=== PATIENT | female | born 1925 | race Caucasian/White ===

== ENCOUNTER 2016-08-21 18:12 | Emergency (ER) | payer MEDICARE, MEDICAID ==
[~2016-08-21] VITALS: Ht 170.2 cm; Wt 68.9 kg
[~2016-08-21 18:12] MED LIST: AMOXICILLIN250 MG PO; AMOXICILLIN500 M2 PO; BACTRIM DS 8001 TA1 PO; DAILY VITE1 TA2 PO; DIAZEPAM2 M1 PO; DIAZEPAM2 MG PO; FERROUS SULFAT325 M2 PO; GAS-X80 MG PO; KEFLEX 500MG.500 MG PO; LORTAB 5/500 501 TAB PO; MACROBID 100MG100 MG PO; MACRODANTIN100 MG PO; MECLIZINE12.5 MG PO; MEDROL 4MG. DOSE4 MG PO; MEGACE PO; MEGESTROL ACETA40 MG PO; MOTRIN IB200 MG PO; MOTRIN100 MG/5 M PO; NYSTATIN 1100000 UNI PO; TUMS500 MG PO; ZITHROMAX Z-PA250 M1 PO; [UNRECOGNIZED DRUG - OTHER] PO
[2016-08-21 18:25] LABS: HEMOGLOBIN 15.1 g/dL (12.2-16.2); LYMPH % 15.6 % (10-50.0)
--- NOTE | 2016-08-21 18:57 | Emergency Room Report ---
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 N Clinical Suspician of Infection? N Mental Status: 1 - Regular (Normal Baseline) Sepsis Risk:Low Sepsis Risk Have you (or family members/close friends) recently traveled outside the [place]? N If Yes, where/when: Have you had exposure to infectious disease within the past month? TB? Other? Specify: Source patient, RN notes reviewed, alf records Exam Limitations no limitations Comment pT is a resident at [facility] and yesterday reached up to put a towel on her head and reportedly dislocated her shoulder Cardiac Chest Pain Chest pain indicative of cardiac No ALLERGIES Coded Allergies: Cephalosporins (Mild, 08/21/16) cefazolin (Mild, 08/21/16) sulfamethoxazole (From BACTRIM) (Mild, 08/21/16) trimethoprim (From BACTRIM) (Mild, 08/21/16) Home Medications Active Scripts SULFAMETHOXAZOLE W/TRIMETHOPRI (Bactrim Ds Tab) 1 TAB PO QHS #14 TAB Prov: 09/08/15 Reported Medications Ibuprofen (Motrin Ib) 200 MG PO Q6HP Diazepam 2 MG PO BID #60 History Medical History General CAD? No Angina: Yes [place]: No Hypertension? No Hyperlipidemia? Yes CHF? No DVT? No PE? No COPD? No Asthma? No Anemia? No GERD? No Gastric ulcers? No GI Bleed? No Hernia? No Thyroid Problems? No Hypothyroidism? No CVA? No Seizures? Yes Diabetes? No Renal Insuffiency? No End Stage Renal Disease? No UTI? Yes Stones? Yes BPH? No GB Disease: No Nephritic Syndrome? No Asplenia? No Hepatitis? No Sickle Cell Disease? No Arthritis? No Migraines? No Cataracts? Yes Glaucoma? No MRSA? No HIV? No TB? No Anxiety? No Depression? No Cancer? Yes Site: OVARIAN CANCER Immunization Hx Ped.Immunizations UTD Yes DT/Tetanus > 10 YRS Flu [id number] Flu Season Pneumonia 08/13/2014 Surgical Hx Previous Surgery?Y POLYP 1981 TERATOMA 1981 APPENDECTOMY PACEMAKER PACEMAKER-BATTERY 2006 D&C 12/2009 PACEMAKER-BATTERY 10/2009 HYSTERECTOMY R/T CA OVARY Family History Family Hx Diabetes No CAD No Hypertension No Hyperlipidemia No Cancer No TB No Social History Smoking Hx Smoker: Never Smoker Tobacco: No Type N/A Are you/the child exposed to second-hand smoke: No Alcohol Alcohol: No Review of Systems All Other Systems Reviewed and Negative Constitutional see HPI Musculoskeletal see HPI Physical Exam Vital Signs Vital Signs Date Time Temp Pulse Resp B/P Pulse O2 O2 Flow FiO2 Ox Delivery Rate 08/21 1902 79 18 130/68 98 08/21 1814 98.3 82 18 129/67 97 General Appearance normal appearance, WD/WN, no apparent distress Respiratory Status No: respiratory distress. Cardiovascular normal exam Extremities Left shoulder does not feel like it is dislocated to me. 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 No Results/Orders Laboratory Tests 08/21/161814: Sodium 142, Potassium 4.0, Chloride 105, Carbon Dioxide 30, BUN 16, Creatinine 0.7, Estimated Creat Clear 59, Estimated GFR (MDRD) 79, Glucose 122 H, Calcium 8.7, WBC 6.2, RBC 4.96, Hgb 15.1, Hct 43.7, MCV 88.1, RDW 13.1, Plt Count 194, MPV 6.1 L, Gran % 74.1, Gran # 4.6, Lymphocytes % 15.6, Monocytes % 8.3, Eosinophils % 1.8, Basophils % 0.3, Lymphocytes # 1.0, Monocytes # 0.5, Eosinophils # 0.1, Basophils # 0.0, PUBS MCHC 34.5, MCH 30.4 Current Medication Orders Sig/Kristyn Start time Last Medication Dose Route Stop Time Status Admin Sodium Chloride 10 ML PRN PRN 08/21 1829 AC IV 08/22 1817 Orders Procedure Date/time Status [id number] VIEWS 08/21 1817 Active IV SALINE LOCK 08/21 1817 Active CBC WITH AUTO DIFF 08/21 1817 Complete BASIC METABOLIC PROFILE 08/21 1817 Complete XRAY/CT/US XRAY/CT/US XRAY shoulder XR interpretation by discussed w/radiologist Xray Results normal/NAD, No dislocations Departure Departure Time of Disposition 1905 Disposition DC Home or Self Care(routine) Clinical Impression Primary Impression: Right shoulder pain Qualifiers: Chronicity: unspecified Qualified Code: M25.511 - Pain in right shoulder Condition STABLE Referrals Jhony Chrsi MD (PCP): 1 Week-Call Office Patient Instructions DI for Shoulder Pain Additional Instructions Return to the ED or followup with PCP as needed. Discharge Counseling Counseled pt/family regarding diagnosis, test results, home care, follow up needs ED Critical Care Critical Care No If Critical Care minutes are documented, the time involved in the performance of seperately reportable procedures was not counted toward critical care time documented. I directly delivered medical care to this critically ill and/or injured patient. Timely evaluation and treatment was necessary to address the significant organ system(s) dysfunction present in this patient. at 1907
--- NOTE | 2016-08-21 18:57 | Emergency Room Report ---
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 N Clinical Suspician of Infection? N Mental Status: 1 - Regular (Normal Baseline) Sepsis Risk:Low Sepsis Risk Have you (or family members/close friends) recently traveled outside the [place]? N If Yes, where/when: Have you had exposure to infectious disease within the past month? TB? Other? Specify: Source patient, RN notes reviewed, correction records Exam Limitations no limitations Comment pT is a resident at [facility] and yesterday reached up to put a towel on her head and reportedly dislocated her shoulder Cardiac Chest Pain Chest pain indicative of cardiac No ALLERGIES Coded Allergies: Cephalosporins (Mild, 08/21/16) cefazolin (Mild, 08/21/16) sulfamethoxazole (From BACTRIM) (Mild, 08/21/16) trimethoprim (From BACTRIM) (Mild, 08/21/16) Home Medications Active Scripts SULFAMETHOXAZOLE W/TRIMETHOPRI (Bactrim Ds Tab) 1 TAB PO QHS #14 TAB Prov: 09/08/15 Reported Medications Ibuprofen (Motrin Ib) 200 MG PO Q6HP Diazepam 2 MG PO BID #60 History Medical History General CAD? No Angina: Yes [place]: No Hypertension? No Hyperlipidemia? Yes CHF? No DVT? No PE? No COPD? No Asthma? No Anemia? No GERD? No Gastric ulcers? No GI Bleed? No Hernia? No Thyroid Problems? No Hypothyroidism? No CVA? No Seizures? Yes Diabetes? No Renal Insuffiency? No End Stage Renal Disease? No UTI? Yes Stones? Yes BPH? No GB Disease: No Nephritic Syndrome? No Asplenia? No Hepatitis? No Sickle Cell Disease? No Arthritis? No Migraines? No Cataracts? Yes Glaucoma? No MRSA? No HIV? No TB? No Anxiety? No Depression? No Cancer? Yes Site: OVARIAN CANCER Immunization Hx Ped.Immunizations UTD Yes DT/Tetanus > 10 YRS Flu [id number] Flu Season Pneumonia 08/13/2014 Surgical Hx Previous Surgery?Y POLYP 1981 TERATOMA 1981 APPENDECTOMY PACEMAKER PACEMAKER-BATTERY 2006 D&C 12/2009 PACEMAKER-BATTERY 10/2009 HYSTERECTOMY R/T CA OVARY Family History Family Hx Diabetes No CAD No Hypertension No Hyperlipidemia No Cancer No TB No Social History Smoking Hx Smoker: Never Smoker Tobacco: No Type N/A Are you/the child exposed to second-hand smoke: No Alcohol Alcohol: No Review of Systems All Other Systems Reviewed and Negative Constitutional see HPI Musculoskeletal see HPI Physical Exam Vital Signs Vital Signs Date Time Temp Pulse Resp B/P Pulse O2 O2 Flow FiO2 Ox Delivery Rate 08/21 1902 79 18 130/68 98 08/21 1814 98.3 82 18 129/67 97 General Appearance normal appearance, WD/WN, no apparent distress Respiratory Status No: respiratory distress. Cardiovascular normal exam Extremities Left shoulder does not feel like it is dislocated to me. 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 No Results/Orders Laboratory Tests 08/21/161814: Sodium 142, Potassium 4.0, Chloride 105, Carbon Dioxide 30, BUN 16, Creatinine 0.7, Estimated Creat Clear 59, Estimated GFR (MDRD) 79, Glucose 122 H, Calcium 8.7, WBC 6.2, RBC 4.96, Hgb 15.1, Hct 43.7, MCV 88.1, RDW 13.1, Plt Count 194, MPV 6.1 L, Gran % 74.1, Gran # 4.6, Lymphocytes % 15.6, Monocytes % 8.3, Eosinophils % 1.8, Basophils % 0.3, Lymphocytes # 1.0, Monocytes # 0.5, Eosinophils # 0.1, Basophils # 0.0, PUBS MCHC 34.5, MCH 30.4 Current Medication Orders Sig/Kristyn Start time Last Medication Dose Route Stop Time Status Admin Sodium Chloride 10 ML PRN PRN 08/21 1829 AC IV 08/22 1817 Orders Procedure Date/time Status [id number] VIEWS 08/21 1817 Active IV SALINE LOCK 08/21 1817 Active CBC WITH AUTO DIFF 08/21 1817 Complete BASIC METABOLIC PROFILE 08/21 1817 Complete XRAY/CT/US XRAY/CT/US XRAY shoulder XR interpretation by discussed w/radiologist Xray Results normal/NAD, No dislocations Departure Departure Time of Disposition 1905 Disposition DC Home or Self Care(routine) Clinical Impression Primary Impression: Right shoulder pain Qualifiers: Chronicity: unspecified Qualified Code: M25.511 - Pain in right shoulder Condition STABLE Referrals Jhony Chris MD (PCP): 1 Week-Call Office Patient Instructions DI for Shoulder Pain Additional Instructions Return to the ED or followup with PCP as needed. Discharge Counseling Counseled pt/family regarding diagnosis, test results, home care, follow up needs ED Critical Care Critical Care No If Critical Care minutes are documented, the time involved in the performance of seperately reportable procedures was not counted toward critical care time documented. I directly delivered medical care to this critically ill and/or injured patient. Timely evaluation and treatment was necessary to address the significant organ system(s) dysfunction present in this patient. at 1907
[2016-08-21 19:31] VITALS: BP 130/68
--- NOTE | 2016-08-22 05:28 | RADIOLOGY REPORT PS360 ---
[id number] VIEWS HISTORY: Right shoulder pain with decreased range of motion POSSIBLE DISLOCATION OF RIGHT SHOULDER ORDERING PHYSICIAN: Marianela Freed MD PATIENT AGE: 89 years COMPARISON: 05/14/2008 FINDINGS: Study somewhat limited secondary to patient positioning. Performed by portable technique. No obvious fracture or dislocation. There is subacromial stenosis with hypertrophic change along the Aspect of the acromium likely resulting in rotator cuff impingement for possible tear. MRI may confirm. Calcification noted along the humeral head consistent with calcific tendinitis. IMPRESSION: 1. No acute fracture. 2. Calcific tendinitis with subacromial stenosis
== END 2016-08-21 19:32 | disposition home or self-care (01) ==
LOC: ER 18:12
PROVIDERS: General Practice
DX: M25.511 Pain in right shoulder (principal); X50.1XXA Overexertion from prolonged static or awkward postures, initial encounter; Y92.129 Unspecified place in nursing home as the place of occurrence of the external cause

== ENCOUNTER → 2016-11-09 | Outpatient (CLI) | payer MEDICARE, MEDICAID ==
--- NOTE | 2016-11-09 15:48 | RADIOLOGY REPORT PS360 ---
History and Indications: Dysrhythmia, hypertension, chest pain, shortness of breath and syncope. Procedure: Patient received 0.4 mg of Lexiscan, resting heart rate was 72 beats resting blood pressure 140/73, with Lexiscan maximum heart rate achieved was 70 beats per which is less than 85% of the maximum predicted heart rate and a blood pressure was 139/74. With Lexiscan patient complained of mild shortness of breath and chest heaviness. Electrocardiogram: Resting electrocardiogram showed sequentially paced rhythm, with Lexiscan there is less than 1.[address] segment depression from the baseline EKG. The EKG portion of the Lexiscan is nondiagnostic. Cardiac stress and resting SPECT images: Stress and the suspect images were obtained using technetium 99 Myoview 10.2 mCi at rest and 30.8 mCi at stress, gated SPECT further analysis of segmental wall motion and calculation of the ejection fraction also done. Cardiac stress and resting SPECT images show uniform myocardial activity without any segmental perfusion abnormality, computer derived ejection fraction is 77% with no obvious regional wall motion abnormality, right ventricle is normal size and contractility. Conclusion: 1. The EKG portion of the Lexiscan is nondiagnostic. 2. No obvious scintigraphic evidence of reversible ischemia seen. There are ejection fraction is 67% with no obvious regional wall motion abnormality. Right ventricle is normal size and contractility. 3. Normal Lexiscan Myoview study.
--- NOTE | 2016-11-09 16:29 | RADIOLOGY REPORT PS360 ---
PROCEDURE: 2-D M-mode and color Doppler study INDICATIONS FOR THE TEST: Chest painX COPD Heart Murmur Tobacco Smoking Palpitations Fatigue Syncope Edema Hypertension Diabetes Mellitus Rheumatic Fever SOB [place] Obesity Hyperlipidemia Family History HD Additional History PACEMAKER PATIENT INFORMATION HEIGHT: 65 WEIGHT:156 GENDER: Female B/P:140/72 2-D/M-MODE INTERPRETATION: 2-D MEASUREMENTS OBSERVED VALUES IN CMS Right Ventricular Dimension (RVDd) 1.8 Interventricular Septum (Thickness)(IVsd) 1.2 Left Ventricular Internal Dimensions(LVIDd) 4.8 Left Ventricular Posterior Wall (Thickness)(LVPWd) 1.0 Aortic Root 3.0 Aortic Cusp Separation Left Atrial Dimensions (LAD) 4.0 2D 1. Left atrium is mildly enlarged, left ventricle is normal size, left ventricle wall thickness is upper limit of the normal size, there is preserved left ventricular systolic function, visually estimated ejection fraction 55%, there is abnormal septal motion. 2. The right atrium and right ventricle are normal size and contractility, there is pacemaker lead seen in the right atrium and right ventricle. 3. The aortic valve is thickened and calcified leaflet continue to display mobility. 4. The mitral valve has mitral calcification there is no mitral stenosis. 5. The tricuspid valve leaflets are minimally thickened there is no tricuspid stenosis. 6. The pulmonic valve is not well visualized. 7. No significant pericardial effusion noted. DOPPLER INTERROGATION: Doppler interrogation of the aortic mitral and tricuspid valvular presence of mild mitral and tricuspid tricuspid regurgitation, calculated right ventricular systolic pressure is 35 mmHg, grade 1 diastolic dysfunction seen without tissue Doppler evidence of raised left atrial pressure. CONCLUSION: 1. Mildly enlarged left atrium, normal left ventricular size, visually estimated ejection fraction 55% with no obvious regional wall motion abnormality, there is abnormal septal motion. Grade 1 diastolic dysfunction seen without tissue Doppler evidence of raised left atrial pressure. 2. Mild mitral and tricuspid regurgitation, calculated right ventricular systolic pressure is 35 mmHg. 3. No significant pericardial effusion noted.
== END ==
LOC: RAD 11:30
DX: R07.89 Other chest pain (principal); R06.00 Dyspnea, unspecified; S43.004A Unspecified dislocation of right shoulder joint, initial encounter; Z95.0 Presence of cardiac pacemaker; Z74.09 Other reduced mobility
CPT/HCPCS: A9502; J2785

== ENCOUNTER → 2016-11-18 | Outpatient (CLI) | payer MEDICARE, MEDICAID ==
[~2016-11-18] MED LIST changes: +ACETAMINOPHEN-H1 TA2 PO; +ACETAMINOPHEN500 M3 PO; +DULCOLAX 1010 MG/SUP PR; +GABAPENTIN100 M1 PO; +GUAIFENESI100 MG/52 PO; +HYDROCODONE-APA1 TA1 PO; +IBUPROFEN400 MG PO; +LACTULOSE10 GM/15 M PO; +MACROBID100 M3 PO; -MOTRIN IB200 MG PO; +MULTI-DAY VITA1 EACH PO; +TRAMADOL 50MG T50 M1 PO; +VITAMIN D31000 IU PO
--- NOTE | 2016-11-18 14:18 | RADIOLOGY REPORT PS360 ---
PID-[id number] RT CLINICAL INDICATION: Recently been placement in the right shoulder, evaluate for possible vascular injury. Bleeding, pain, dislocation VASCULAR INJURY ORDERING PHYSICIAN: CADENCE BROCK MD PATIENT AGE: 89 years COMPARISON: 11/17/2016 TECHNIQUE: Axial images are obtained following the intravenous ministration 100 mL's of Isovue-370. Sagittal and coronal reformatted images are generated and reviewed as well. FINDINGS: As previously mentioned, there are 4 wires into the right humeral head tube which are extending from laterally. One tip is just at the medial aspect of the coracoid while the second. This just deep and inferior to the coracoid. A superior pin extends into the distal aspect of the acromion into the humerus with an additional pin extending from the lateral aspect the humeral neck to the distal clavicle region. The axillary, and brachial arteries have an unremarkable appearance. No evidence of hematoma. No pseudoaneurysm or contrast extravasation. Soft tissue density remains in the axillary area with some concentric calcification likely related to pseudocapsule from chronic dislocation. There is an old fracture of the base of the coracoid. J changes are present at the glenohumeral joint as previously described. IMPRESSION: 1. No evidence of contrast extravasation or pseudoaneurysm of the axillary or brachial artery. 2. Postsurgical changes with pin placement as described above. 3. Soft tissue density in the axillary pouch probably related to bursitis and pseudocapsule.
== END ==
LOC: RAD 12:37
DX: S45.901A Unspecified injury of unspecified blood vessel at shoulder and upper arm level, right arm, initial encounter (principal)
CPT/HCPCS: Q9967

== ENCOUNTER 2016-11-19 10:20 | Observation (INO) | payer MEDICARE, MEDICAID ==
[~2016-11-19] VITALS: Ht 167.6 cm; Wt 71.9 kg
[~2016-11-19 10:20] MED LIST changes: -ACETAMINOPHEN-H1 TA2 PO; -ACETAMINOPHEN500 M3 PO; -DULCOLAX 1010 MG/SUP PR; -GABAPENTIN100 M1 PO; -GUAIFENESI100 MG/52 PO; -HYDROCODONE-APA1 TA1 PO; -LACTULOSE10 GM/15 M PO; -MACROBID100 M3 PO; -MULTI-DAY VITA1 EACH PO; -TRAMADOL 50MG T50 M1 PO; -VITAMIN D31000 IU PO
[2016-11-19 12:16] VITALS: BP 110/60
[2016-11-19 12:24] LABS: LYMPH # 1.1 K/mm3 (0.7-4.5); LYMPH % 18.7 % (10-50.0)
[2016-11-19 12:25] LABS: HEMOGLOBIN 13.1 g/dL (12.2-16.2)
[2016-11-19 12:28] LABS: BUN 16 mg/dL (7-18)
[2016-11-19 12:31] LABS: GFR (ESTIMATED) 94 ML/MIN (59-)
[2016-11-19 14:00] VITALS: BP 110/60
[2016-11-19 16:00] VITALS: BP 110/59
--- NOTE | 2016-11-19 18:59 | ACUTE CARE PROGRESS NOTE (QUA) ---
Progress Notes Subjective Date 11/19/16 Time 1831 Note FAMILY MEDICINE CONSULT NOTE: 89 yo WF who is a resident at [facility] who is remarkably healthy for her age. She has had a dislocated right shoulder and followed by Dr. Felder. He performed open reduction of the shoulder today and had some mild postop bleeding and admitted for observation tonight. She has a history of a permanent pacemaker in place and had a cardiac workup prior to surgery that was unremarkable. She also has a history of anxiety disorder, hyperlipidemia, chronic vertigo, and chronic TMJ syndrome. At the present time she is sitting comfortably on the side of the bed with her arm in a sling. She has no unusual complaints. Objective Findings Laboratory Tests 11/19/16 1205: Sodium 140, Potassium 3.9, Chloride 106, Carbon Dioxide 29, BUN 16, Creatinine 0.6, Estimated GFR (MDRD) 94, Glucose 99, Calcium 8.3 L, Total Bilirubin 0.4, AST 20, ALT 19, Alkaline Phosphatase 96, Total Protein 6.4, Albumin 3.0 L, Globulin 3.4 H, Albumin/Globulin Ratio 0.9 L, PT 11.4, INR 1.07, APTT 26.1, WBC 6.0, RBC 4.55, Hgb 13.1, Hct 41.4, MCV 90.9, RDW 13.6, Plt Count 191, MPV 6.2 L, Gran % 71.6, Gran # 4.3, Lymphocytes % 18.7, Monocytes % 6.0, Eosinophils % 3.3, Basophils % 0.3, Lymphocytes # 1.1, Monocytes # 0.4, Eosinophils # 0.2, Basophils # 0.0, PUBS MCHC 32.1, MCH 29.2 Microbiology 11/19 1013 SHOULDER: Body Fluid Culture - RES 11/19 1013 SHOULDER: Gram Stain - RES Last VS-Temp:98.1 B/P:110/59 Pulse:76 Resp:20 SaO2:95 ROOM AIR Last weight lbs:154 oz:9 K.109 Method:Bed Scales Exam General appearance: alert, no acute distress Eyes: anicteric, conjunctiva clear ENT: mucous membranes moist Neck: no carotid bruit, supple Cardiovascular: regular rate & rhythm Respiratory: clear to auscultation ABD: non-distended, soft, no tenderness Extremities: no peripheral edema, right arm in sling. Dressing intact Skin: dry, normal color, warm Neuro: alert, no deficit, normal mood/affect Reviewed: medications, vital signs, nursing notes Assessment/Plan Problem List 1. Recurrent dislocation, right shoulder 2. Anxiety disorder 3. Hyperlipidemia 4. Osteoarthritis 5. History of non anemic vitamin B12 deficiency 6. History of permanent cardiac pacemaker placement Patient condition Stable Plan: Appears stable post op tonight. Having appropriate pain and Dr. Felder has ordered pain medicaion. Will order her maintenance Valium and Gabapentin for tonight and follow patient for any medical needs while hospitalized. This inpt stay is expected to cross 2 MNs from start of care No at 1859
[2016-11-19] MEDS ORDERED: MULTI-DAY VITA1 EACH PO (19:04)
[2016-11-19] MEDS ORDERED: VITAMIN D31000 IU PO (19:05)
[2016-11-19] MEDS ORDERED: TRAMADOL 50MG T50 M1 PO (19:08)
[2016-11-19] MEDS ORDERED: ACETAMINOPHEN-H1 TA2 PO (19:10)
[2016-11-19 20:30] VITALS: BP 124/61
[2016-11-19 20:32] VITALS: BP 124/61
[2016-11-20 04:30] VITALS: BP 121/64
--- NOTE | 2016-11-20 08:15 | ACUTE CARE PROGRESS NOTE (QUA) ---
Progress Notes Subjective Date 11/20/16 Time 0810 Note Pt seen and examined. SHe states she slept all night and feels fairly well this AM. Shoulder is uncomfortable but pain is controlled with meds. No bleeding problems during the night Objective Findings Laboratory Tests 11/19/16 1205: Sodium 140, Potassium 3.9, Chloride 106, Carbon Dioxide 29, BUN 16, Creatinine 0.6, Estimated GFR (MDRD) 94, Glucose 99, Calcium 8.3 L, Total Bilirubin 0.4, AST 20, ALT 19, Alkaline Phosphatase 96, Total Protein 6.4, Albumin 3.0 L, Globulin 3.4 H, Albumin/Globulin Ratio 0.9 L, PT 11.4, INR 1.07, APTT 26.1, WBC 6.0, RBC 4.55, Hgb 13.1, Hct 41.4, MCV 90.9, RDW 13.6, Plt Count 191, MPV 6.2 L, Gran % 71.6, Gran # 4.3, Lymphocytes % 18.7, Monocytes % 6.0, Eosinophils % 3.3, Basophils % 0.3, Lymphocytes # 1.1, Monocytes # 0.4, Eosinophils # 0.2, Basophils # 0.0, PUBS MCHC 32.1, MCH 29.2 Microbiology 11/19 1013 SHOULDER: Body Fluid Culture - RES 11/19 1013 SHOULDER: Gram Stain - RES Last VS-Temp:97.5 B/P:121/64 Pulse:72 Resp:18 SaO2:95 ROOM AIR Last weight lbs:154 oz:9 K.109 Method:Bed Scales Exam General appearance: alert, no acute distress Cardiovascular: regular rate & rhythm Respiratory: clear to auscultation Extremities: Dressing on right shoulder is clean and dry Neuro: alert, normal mood/affect Reviewed: medications, vital signs, nursing notes Assessment/Plan Problem List 1. Recurrent dislocation, right shoulder 2. Anxiety disorder 3. Hyperlipidemia 4. Osteoarthritis 5. History of non anemic vitamin B12 deficiency 6. History of permanent cardiac pacemaker placement Plan: From primary care standpoint, she is medically stable for discharge back to [place]. This inpt stay is expected to cross 2 MNs from start of care No at 0815
[2016-11-20 08:27] VITALS: BP 112/56
--- NOTE | 2016-11-20 09:23 | PHARMACY CLINIC NOTE ---
Patient Demographics Patient Demographics Admission date: 11/19/16 Date: 11/20/16 Time: 09 Allergies Coded Allergies: Cephalosporins (Mild, 11/17/16) cefazolin (Mild, 11/17/16) sulfamethoxazole (From BACTRIM) (Mild, 11/17/16) trimethoprim (From BACTRIM) (Mild, 11/17/16) HEIGHT- FT: 5 IN: 6.00 K.109 VTE General Information Labs: Laboratory Tests 11/19 1205 Coagulation PT (9.4 - 11.8 SECONDS) 11.4 INR (0.9 - 1.1) 1.07 APTT (23.6 - 34.0 SECONDS) 26.1 Hematology Hgb (12.2 - 16.2 g/dL) 13.1 Hct (37.0 - 47.0 %) 41.4 Plt Count (142 - 424 K/mm3) 191 Disclaimer The following section includes nursing documentation that has been pulled in for pharmacy review. Patient's VTE score: 2 Patient's VTE Risk: VERY LOW RISK Clinical trial participant? No VTE prophylaxis NQF [id number] VTE prophylaxis ordered? Yes Type of prophylaxis/treatment: ICD at 0922
[2016-11-20 10:46] VITALS: BP 112/56
[2016-11-20] MEDS ORDERED: GABAPENTIN100 M1 PO (12:41)
[2016-11-20] MEDS ORDERED: HYDROCODONE-APA1 TA1 PO (12:44)
[2016-11-20] MEDS ORDERED: ACETAMINOPHEN500 M3 PO (12:45)
[2016-11-20] MEDS ORDERED: DULCOLAX 1010 MG/SUP PR (12:46)
[2016-11-20] MEDS ORDERED: GUAIFENESI100 MG/52 PO (12:48)
[2016-11-20] MEDS ORDERED: LACTULOSE10 GM/15 M PO (12:49)
--- NOTE | 2016-11-20 14:24 | ACUTE CARE PROGRESS NOTE ---
Progress note Date: 11/20/16 Assessment: Subjective: Patient is lying in bed and says she is having RIGHT shoulder pain at the moment. Overall she says her pain is well controlled with when necessary pain medication. She states she slept well during the night. No bleeding problems through the night and did not need any dressing changes. No history of any distal tingling or numbness. She is heating and drinking well. No history of any fevers, chills or rigors. Objective: Laboratory Tests 11/19/16 1205: Sodium 140, Potassium 3.9, Chloride 106, Carbon Dioxide 29, BUN 16, Creatinine 0.6, Estimated GFR (MDRD) 94, Glucose 99, Calcium 8.3 L, Total Bilirubin 0.4, AST 20, ALT 19, Alkaline Phosphatase 96, Total Protein 6.4, Albumin 3.0 L, Globulin 3.4 H, Albumin/Globulin Ratio 0.9 L, PT 11.4, INR 1.07, APTT 26.1, WBC 6.0, RBC 4.55, Hgb 13.1, Hct 41.4, MCV 90.9, RDW 13.6, Plt Count 191, MPV 6.2 L, Gran % 71.6, Gran # 4.3, Lymphocytes % 18.7, Monocytes % 6.0, Eosinophils % 3.3, Basophils % 0.3, Lymphocytes # 1.1, Monocytes # 0.4, Eosinophils # 0.2, Basophils # 0.0, PUBS MCHC 32.1, MCH 29.2 Microbiology Date/Time Procedure - Status Source Growth 11/19 1013 Body Fluid Culture - RES SHOULDER 11/19 1013 Gram Stain - RES SHOULDER Vital Signs Result Date Time Resp 18 11/20 1054 Pulse Ox 97 11/20 1046 B/P 112/56 11/20 1046 Temp 97.9 11/20 1046 Pulse 77 11/20 1046 O2 Delivery ROOM AIR 11/20 0827 Exam General appearance: alert, no acute distress Cardiovascular: regular rate & rhythm Respiratory: clear to auscultation Neuro: alert, normal mood/affect On examination of her RIGHT shoulder, the dressings are clean, dry and intact. She is in a sling with abduction pillow. Distal neurovascular status is intact. Impression: 1. Recurrent dislocation, right shoulder 2. Anxiety disorder 3. Hyperlipidemia 4. Osteoarthritis 5. History of non anemic vitamin B12 deficiency 6. History of permanent cardiac pacemaker placement Plan: Reviewed the medications, vital signs, lab results, medical progress note and discussed with the nursing staff. Reviewed the findings and progress with the patient. The Gram stain and primary culture has been negative. Continue observation and dressing changes if needed. Continue when necessary pain medication, IV clindamycin. I would like to observe her in the hospital for another day and discharge tomorrow if there is no further bleeding and cultures are negative. Antibiotic Stewardship (2) Current Culture Results Microbiology 11/19 1013 SHOULDER: Body Fluid Culture - RES 11/19 1013 SHOULDER: Gram Stain - RES at 1450
[2016-11-20 16:00] VITALS: BP 115/61
[2016-11-20 19:30] VITALS: BP 116/53
[2016-11-20 20:30] VITALS: BP 116/53
[2016-11-21 04:00] VITALS: BP 121/67
[2016-11-21 08:00] VITALS: BP 110/61
[2016-11-21 08:34] VITALS: BP 110/61
--- NOTE | 2016-11-21 11:52 | ACUTE CARE PROGRESS NOTE (QUA) ---
Progress Notes Subjective Date 11/21/16 Time 0855 Note Did not sleep as well last night; some pain. Also had more bleeding last night requiring dressing change. Objective Findings Last VS-Temp:98.3 B/P:110/61 Pulse:75 Resp:18 SaO2:93 ROOM AIR Last weight lbs:154 oz:9 K.109 Method:Bed Scales Exam General appearance: alert, no acute distress Cardiovascular: regular rate & rhythm Respiratory: clear to auscultation Extremities: right arm in sling Assessment/Plan Problem List 1. Recurrent dislocation, right shoulder 2. Anxiety disorder 3. Hyperlipidemia 4. Osteoarthritis 5. History of non anemic vitamin B12 deficiency 6. History of permanent cardiac pacemaker placement Plan: Per ortho recommendations This inpt stay is expected to cross 2 MNs from start of care No at 1157
[2016-11-21 16:02] VITALS: BP 115/59
--- NOTE | 2016-11-21 17:10 | ACUTE CARE PROGRESS NOTE ---
Progress note Date: 11/21/16 Assessment: Subjective: Patient is sitting out in a chair and says she is having RIGHT shoulder pain at the moment. She says her pain is well controlled when she takes pain medication. She states there was some bleeding from her RIGHT shoulder and needed a dressing change during the night. No bleeding throughout the day today. No history of any distal tingling or numbness. She is eating and drinking well. No history of any fevers, chills or rigors. She is worried about being discharged to the correction and is needing to come back with further problems. Objective: Exam General appearance: alert, no acute distress Cardiovascular: regular rate & rhythm Respiratory: clear to auscultation Neuro: alert, normal mood/affect On examination of her RIGHT shoulder, the dressings are clean, dry and intact. She is in a sling with abduction pillow. Distal neurovascular status is intact. Impression: 1. Recurrent dislocation, right shoulder 2. Anxiety disorder 3. Hyperlipidemia 4. Osteoarthritis 5. History of non anemic vitamin B12 deficiency 6. History of permanent cardiac pacemaker placement Plan: Reviewed the medications, vital signs, lab results, medical progress note and discussed with the nursing staff. Reviewed the findings and progress with the patient. The cultures have been negative at 48 hours. Continue observation and dressing changes as needed. Continue when necessary pain medication, IV clindamycin. Given her concerns regarding discharge and needing to come back with further problems, I would like to observe her in the hospital for another day and discharge tomorrow if there is no further bleeding or other problems. Antibiotic Stewardship (2) Current Culture Results Microbiology 11/19 1013 SHOULDER: Body Fluid Culture - RES 11/19 1013 SHOULDER: Gram Stain - RES
[2016-11-21 20:15] VITALS: BP 110/53
[2016-11-21 20:30] VITALS: BP 110/53
[2016-11-22 04:30] VITALS: BP 102/56
[2016-11-22 08:18] VITALS: BP 101/46
[2016-11-22 09:02] LABS: HEMOGLOBIN 12.6 g/dL (12.2-16.2); LYMPH # 0.7 K/mm3 (0.7-4.5); LYMPH % 16.2 % (10-50.0)
[2016-11-22 10:32] VITALS: BP 101/46
--- NOTE | 2016-11-22 14:31 | ACUTE CARE PROGRESS NOTE ---
Progress note Date: 11/22/16 Assessment: Subjective: Patient is sitting out in a chair and says her pain is well controlled with pain medication. She states there was no further bleeding from her RIGHT shoulder and did not have any dressing changes. No history of any distal tingling or numbness. She is eating and drinking well. No history of any fevers, chills or rigors. Objective: Exam General appearance: alert, no acute distress Cardiovascular: regular rate & rhythm Respiratory: clear to auscultation Neuro: alert, normal mood/affect On examination of her RIGHT shoulder, the dressings are clean, dry and intact. She is in a sling with abduction pillow. Distal neurovascular status is intact. We have changed her dressings today. When we removed the old dressings, the dressings were soaked with serosanguineous discharge. There was still significant discharge coming out from the superior K wire site. The skin and K wire sites were cleaned and sterile dressings were applied. Impression: 1. Recurrent dislocation, right shoulder 2. Anxiety disorder 3. Hyperlipidemia 4. Osteoarthritis 5. History of non anemic vitamin B12 deficiency 6. History of permanent cardiac pacemaker placement Plan: Reviewed the medications, vital signs, lab results, medical progress note and discussed with the nursing staff. Reviewed the findings and progress with the patient and her brother who was with her in the room. The cultures have been negative at 48 hours. Patient continues to have significant oozing of serous fluid from the superior K wire site. I had a detailed discussion with the patient and her brother regarding further management options. After a lengthy discussion patient wished to proceed with resection arthroplasty as was discussed previously during her office visits. I have told the patient that I would discuss these options with my colleague, Dr. Roberson and formulate the next steps in her management. Continue when necessary pain medication, IV clindamycin. Medical management as per Dr. Chris's team. Antibiotic Stewardship (2) Current Culture Results Microbiology 11/23 1710 SHOULDER: Body Fluid Culture - ORD 11/23 171 SHOULDER: Wound Culture - ORD 11/23 1600 URINE,FO: Urine Culture - RECD 11/19 1013 SHOULDER: Gram Stain - COMP
[2016-11-22 16:52] VITALS: BP 110/60
[2016-11-22 19:57] VITALS: BP 110/60
[2016-11-22 20:08] VITALS: BP 133/64
[2016-11-23] VITALS (11 sets, daily range): BP systolic 97–128; BP diastolic 46–66
--- NOTE | 2016-11-23 10:05 | ACUTE CARE PROGRESS NOTE ---
Progress note Date: 11/23/16 Assessment: Subjective: Patient is sitting out in a chair and says her pain is well controlled when she takes pain medication. No history of any distal tingling or numbness. She is eating and drinking well. No history of any fevers, chills or rigors. Objective: Exam General appearance: alert, no acute distress Cardiovascular: regular rate & rhythm Respiratory: clear to auscultation Abdomen: Soft and nontender. Bowel sounds heard over all 4 quadrants Neuro: alert, normal mood/affect On examination of her RIGHT shoulder, the dressings are clean, dry and intact. She is in a sling with abduction pillow. Distal neurovascular status is intact. We have changed her dressings- there is still significant oozing from her K wire sites especially the superior one. The dressings were soaked with serosanguineous discharge. No evidence of any infection. Sterile dressings were reapplied. Impression: 1. Recurrent dislocation, right shoulder 2. Anxiety disorder 3. Hyperlipidemia 4. Osteoarthritis 5. History of non anemic vitamin B12 deficiency 6. History of permanent cardiac pacemaker placement Plan: Patient continues to have significant oozing from the superior K wire site. This mainly appears to be synovial/bursal fluid mixed with little bit of blood. It has been 6 days since the initial procedure and as she continues to ooze from the K wire sites, the worry at this stage he is risk of infection. Also on the CT scan the shoulder is still is subluxed sitting anteriorly over the glenoid as opposed to concentric stable reduction. So the risk of redislocation after the removal of K wires is significant. Given this situation and her chronic rotator cuff tear, we have discussed the options including reverse total shoulder arthroplasty as well as a resection arthroplasty ([place]) as was initially planning. Patient says he does not want any major reconstructive surgery at her age and physical and physiological status. She therefore opted for a resection arthroplasty of the RIGHT shoulder. We will plan to perform this later this afternoon. I have also discussed this with my colleague, Dr. Roberson and he agrees. He is going to help me in the Operating Room with the procedure. I have also discussed this with the patient's brother.
--- NOTE | 2016-11-23 18:38 | Anesthesia Record ---
Anesthesia Record Part I Total IV fluids: 1000 EBL (ml): 150 Urine Output: 100 B/P: 115/70 % SaO2: 93 Pulse: 102 Resps: 16 Temp: 98.2 Patient is: Drowsy, Stable Stable to PACU at: 1828 at 1838
--- NOTE | 2016-11-23 18:39 | Anesthesia Record ---
Anesthesia Record Part II Discharge time: 1857 Destination: Second Floor PACU nurse assessment review? Yes Patient is: Awake, Stable Anesthesia complications? No at 1831
--- NOTE | 2016-11-23 18:52 | Operative Note ---
Procedure/Operative Record Date of Procedure: 11/23/16 Referring physician: Dr. Chris Pre-op diagnosis: 1. Chronic dislocation, RIGHT shoulder 2. Failed closed reduction and K wire fixation, RIGHT shoulder Post-op diagnosis: 1. Chronic dislocation, RIGHT shoulder 2. Failed closed reduction and K wire fixation, RIGHT shoulder Procedure performed: Resection arthroplasty ([place]), Right shoulder Surgeon: CADENCE BROCK MD Aboriginal Education Worker Coordinator(s): Dr. Roberson Anesthesia: General Indications: Patient is an 89-year-old female with chronic right shoulder dislocation. She underwent a closed reduction and K wire fixation for the shoulder about a week ago. Postoperatively she continued oozing from the K wire sites. The CT scan of her RIGHT shoulder also showed persistent subluxation with the K wires missing the glenoid altogether. Given the continued oozing from the K wire sites on the imaging findings, we have decided to proceed with resection arthroplasty as was initially planned. Patient and her family agreed to proceed with this. Findings: Chronic dislocation of the RIGHT shoulder with a large Hill-Sachs lesion. The rotator cuff was completely torn and nonexistent. There was a large pseudocapsule with the partial calcification. The humeral head was noted to be articulating partially with the coracoid. The glenoid was partially eroded anteriorly. Significant degeneration of the glenoid and humeral head were noted. The bone was very osteoporotic. Overall the shoulder was very unstable with minimal dynamic support from the soft tissue from the shoulder. Description of procedure: The patient was brought to the operating room, a general anesthesia was administered by the anesthesia team. She was placed in a well-padded beach chair position. The previously placed K wires into the RIGHT shoulder were removed. The RIGHT shoulder/upper extremity was then prepped and draped in the usual sterile fashion. The axilla and the operative site were sealed off with Ioban drape. Administration of prophylactic antibiotics was confirmed with the anesthesia team. We used 1 g of vancomycin IV as patient was already on clindamycin and she is ALLERGIC to cephalosporins. A preprocedure timeout was performed as per the hospital protocol. Before making the incision, I injected 10 mL of 0.5 percent Marcaine with epinephrine into the subcutaneous tissue along the line of skin incision. A skin incision was made over the deltopectoral interval and dissection carried through the subcutaneous tissue with minor bleeding controlled with electrocautery. Then , the deltopectoral interval was identified and was developed retracting the cephalic vein laterally. The conjoint tendon was exposed and was retracted medially. After dissecting through the deltopectoral fascia, the proximal humerus was exposed. We have noticed that there was a large pseudocapsule which was partially calcified. The humeral head was dislocated anteriorly. There were no intact rotator cuff muscles. The long head of biceps tendon was torn and was not visible in the operative field. After opening the joint capsule, there was large amount of effusion. The humeral head was very arthritic and deformed. There was very large Hill-Sachs lesion posteriorly. The glenoid was partially eroded anteriorly and noted to be arthritic and devoid of any articular cartilage. The humeral head was noted to be arthritic and with the base of the coracoid. The large redundant capsule was partially calcified. After noting the above findings we have decided to proceed with a resection arthroplasty as planned. Using an oscillating saw we have removed the humeral head. Then using a bone rongers we have removed the osteophytes around the proximal humerus and also smoothened the bone edges. After confirming the satisfactory removal of bone, we also resected the redundant capsule. The joint was thoroughly irrigated with normal saline. We have obtained culture swabs from the wound at this stage. Hemostasis was obtained. The capsule was closed with interrupted 1 Vicryl sutures. The deltopectoral interval was tagged with a single Ethibond suture for future identification. The rest of the interval was closed with interrupted 2-0 Vicryl sutures. Subcu tissue closed with 2-0 Vicryl sutures. Skin closed with 4- 0 Monocryl subcuticular sutures, Dermabond and Steri-Strips. 20 mL of 0.5 percent Marcaine with epinephrine was injected into the skin and soft tissues for postoperative pain relief. Sterile dressings were applied to the wound followed by application of an arm sling. Circulatory status was intact in the extremity at the completion of the case. The patient was then reversed from the anesthetic and transferred onto the bed. She was then transferred to the postoperative recovery area in a stable condition. She tolerated the procedure well and there were no immediate complications. At the end of the procedure the swab, needle and instrument counts were correct according to the scrub team. A portable x-ray of the RIGHT shoulder was obtained in the recovery area and was noted to be satisfactory. The patient was admitted to the hospital for observation, analgesia and prophylactic antibiotics. EBL (ml): 150 Implant: None Complications: None Specimens: Aerobic and anaerobic swabs from the shoulder obtained before wound closure for culture and sensitivity. at 1152
[2016-11-23 22:39] LABS: URINE BILIRUBIN - DIPSTICK NEGATIVE (NEG); URINE BLOOD TRACE-INTACT (NEG)
--- NOTE | 2016-11-23 22:48 | RADIOLOGY REPORT PS360 ---
[id number] [id number] CLINICAL INDICATION: POST OP XRAY ORDERING PHYSICIAN: CADENCE BROCK MD PATIENT AGE: 89 years COMPARISON: 10/14/2016, 11/17/2016 FINDINGS: Multiple pins have been removed. Right humeral head appears somewhat deformed. There does appear to be dislocation/severe subluxation of the right humeral head medially. Periarticular calcification once again noted. IMPRESSION: Interval removal of the multiple and with recurrent right shoulder dislocation/severe subluxation
[2016-11-24] VITALS (8 sets, daily range): BP systolic 99–140; BP diastolic 42–76
[2016-11-24 06:57] LABS: HEMOGLOBIN 11.6 g/dL (12.2-16.2); LYMPH # 0.8 K/mm3 (0.7-4.5); LYMPH % 16.7 % (10-50.0)
--- NOTE | 2016-11-24 14:15 | ACUTE CARE PROGRESS NOTE ---
Progress note Date: 11/24/16 Assessment: Subjective: Patient is lying in the bed and says her pain is well controlled with medication. She says she is feeling tired. No history of any distal tingling or numbness. She is eating and drinking well. No history of any fevers, chills or rigors. Objective: Reviewed the vitals, labs, medication, and discussed with the nursing staff. Exam General appearance: alert, no acute distress Cardiovascular: regular rate & rhythm Respiratory: clear to auscultation Neuro: alert, normal mood/affect On examination of her RIGHT shoulder, the dressings are clean, dry and intact. She is in a sling. Distal neurovascular status is intact. Impression: 1. Recurrent dislocation, right shoulder 2. Anxiety disorder 3. Hyperlipidemia 4. Osteoarthritis 5. History of non anemic vitamin B12 deficiency 6. History of permanent cardiac pacemaker placement Plan: Status post resection arthroplasty RIGHT shoulder, postoperative day 1. She is doing well and reports pain is well-controlled. Continue mobilization of the elbow wrist and fingers. Stop IV fluids as she is eating and drinking well. Continue when necessary pain medication. For change of dressings tomorrow and likely discharge after that.
[2016-11-25 00:01] VITALS: BP 121/50
[2016-11-25 03:51] VITALS: BP 135/63
[2016-11-25 08:00] VITALS: BP 134/66
--- NOTE | 2016-11-25 11:42 | ACUTE CARE PROGRESS NOTE (QUA) ---
Progress Notes Subjective Date 11/25/16 Time 1137 Note FAMILY MEDICINE CONSULT: She tinks she may be returning to [place] today. She has not been very mobile. Still with pain in the arm. Objective Findings Last VS-Temp:97.7 B/P:134/66 Pulse:92 Resp:18 SaO2:94 ROOM AIR Last weight lbs:158 oz:9 K.923 Method:Bed Scales Exam General appearance: no acute distress, responsive, pale Eyes: conjunctiva clear ENT: mucous membranes moist Cardiovascular: regular rate & rhythm Respiratory: clear to auscultation, no respiratory distress ABD: no tenderness Extremities: no peripheral edema, sling in place Skin: dry, intact Neuro: no deficit Reviewed: medications, vital signs, lab results Assessment/Plan Problem List 1. Recurrent dislocation, right shoulder 2. Anxiety disorder 3. Hyperlipidemia 4. Osteoarthritis 5. History of non anemic vitamin B12 deficiency 6. History of permanent cardiac pacemaker placement Plan: continue current care, Will need physical therapy to encourage some activity. This inpt stay is expected to cross 2 MNs from start of care No at 1141
--- NOTE | 2016-11-25 11:42 | ACUTE CARE PROGRESS NOTE (QUA) ---
Progress Notes Subjective Date 11/25/16 Time 1137 Note FAMILY MEDICINE CONSULT: She tinks she may be returning to [place] today. She has not been very mobile. Still with pain in the arm. Objective Findings Last VS-Temp:97.7 B/P:134/66 Pulse:92 Resp:18 SaO2:94 ROOM AIR Last weight lbs:158 oz:9 K.923 Method:Bed Scales Exam General appearance: no acute distress, responsive, pale Eyes: conjunctiva clear ENT: mucous membranes moist Cardiovascular: regular rate & rhythm Respiratory: clear to auscultation, no respiratory distress ABD: no tenderness Extremities: no peripheral edema, sling in place Skin: dry, intact Neuro: no deficit Reviewed: medications, vital signs, lab results Assessment/Plan Problem List 1. Recurrent dislocation, right shoulder 2. Anxiety disorder 3. Hyperlipidemia 4. Osteoarthritis 5. History of non anemic vitamin B12 deficiency 6. History of permanent cardiac pacemaker placement Plan: continue current care, Will need physical therapy to encourage some activity. This inpt stay is expected to cross 2 MNs from start of care No at 1141
--- NOTE | 2016-11-25 13:37 | ACUTE CARE PROGRESS NOTE ---
Progress note Date: 11/25/16 Assessment: Subjective: Patient is lying down in bed and says she is doing well. She says her pain is well controlled with pain medication. No history of any distal tingling or numbness. She is eating and drinking well. No history of any fevers, chills or rigors. Her brother is with her in the room Objective: I reviewed the vital signs, labs, medication, medical progress note and discussed with the nursing staff. Exam General appearance: alert, no acute distress Cardiovascular: regular rate & rhythm Respiratory: clear to auscultation Neuro: alert, normal mood/affect On examination of her RIGHT shoulder, the dressings are clean, dry and intact. She is in an arm sling. Distal neurovascular status is intact. We have changed her dressings today. There is a little bit of soakage of the dressings from the superior K wire site. The surgical incision looks clean, dry and healthy. Impression: 1. Recurrent dislocation, right shoulder 2. Anxiety disorder 3. Hyperlipidemia 4. Osteoarthritis 5. History of non anemic vitamin B12 deficiency 6. History of permanent cardiac pacemaker placement Plan: Reviewed the findings and progress with the patient and her brother. We have changed her dressings today and the wounds look clean dry and healthy. There was little bit of discharge from the superior K wires site. No signs of any erythema or induration or infection. A urine culture was positive for E. coli infection and we have started her on nitrofurantoin today. Continue when necessary pain medication, stop IV clindamycin. Encouraged her to mobilize the elbow, wrist and fingers taking the arm out of the sling intermittently. Also encouraged her to start pendulum exercises to the RIGHT shoulder as comfortable. We will discharge her back to the intermediate today and follow-up in my office in 1 week's time. I have encouraged her to contact my office if there are any problems in the meantime. Please feel free to call our office at [phone] for any orthopaedic questions. Medical management as per Dr. Chris's team. Antibiotic Stewardship (2) Current Culture Results Microbiology 11/24 1739 SHOULDER: Antimicrobic Susceptibility - RECD 11/24 1739 SHOULDER: Anaerobic Culture Result 4 - RECD 11/24 1739 SHOULDER: Anaerobic Culture Result 3 - RECD 11/24 1739 SHOULDER: Anaerobic Culture Result 2 - RECD 11/23 1740 SHOULDER: Anaerobic Culture Result 1 - RECD 11/23 1740 SHOULDER: Anaerobic Culture - RECD 11/23 1740 SHOULDER: Wound Culture - RES 11/23 1710 SHOULDER: Body Fluid Culture - ORD 11/23 1600 URINE,FO: Urine Culture - COMP ESCHERICHIA COLI 11/19 1013 SHOULDER: Gram Stain - COMP
[2016-11-25] MEDS ORDERED: MACROBID100 M3 PO (13:47)
--- NOTE | 2016-11-25 13:55 | DISCHARGE SUMMARY STANDARD ---
Demographics Admit date: 11/19/16 Discharge date: 11/25/16 History of present illness History of present illness 89 yo WF who is a resident at [facility] who is remarkably healthy for her age. She has had a chronic dislocation of right shoulder for which she underwent a closed manipulative reduction and K wire fixation on 11/17/2016. Postoperatively she started oozing from one of the K wire sites. She was admitted for observation and for further management as needed. She has a history of a permanent pacemaker in place and had a cardiac workup prior to surgery that was unremarkable. She also has a history of anxiety disorder, hyperlipidemia, chronic vertigo, and chronic TMJ syndrome. She says she had a disturbed sleep and also reports some shoulder pain. She is not on any anticoagulants but has been on ibuprofen for a long time. No history of any distal tingling or numbness. No history of any hypotension, lightheadedness or dizziness. She says she feels well within herself and is eating and drinking well. No history of any fevers, chills or rigors. Hospital Course Hospital Course: Patient was admitted for observation and dressing changes as needed. However, she continued to ooze from the K wire sites and also continue to have pain and discomfort in her shoulder. As there is risk of infecting the shoulder with the continued discharge from the K wire sites as well as the fact that the shoulder is only partially reduced with anterior subluxation and a large Hill-Sachs lesion, a decision was made to proceed with resection arthroplasty of her RIGHT shoulder as was initially planned. The patient was amenable for this. She underwent removal of K wires and a successful resection arthroplasty ( Girdlestone) of RIGHT shoulder on 11/23/2016. The interested reader is referred to operative note for details. Her postoperative course was uneventful. Her routine urine cultures were positive for E. coli UTI and she was started on oral nitrofurantoin. Otherwise she remained hemodynamically stable, fairly comfortable with when necessary pain medication and eating and drinking well. The dressings were changed on the second postoperative day and there was minimal oozing from the K wire site. The surgical incision was clean dry and intact. There are no signs of any infection. This morning she is doing well, alert, oriented x3. Expected pain is noted. However her exam has improved very nicely. She'll be transferred back to the [facility] for ongoing rehabilitation. At time of discharge the patient's vital signs were stable and she was afebrile. Our recommendations for the [facility] includes to continue with the arm sling and mobilize the elbow, wrist and fingers intermittently taking the arm out of the sling. Ice the shoulder frequently. She can start pendulum exercises of the shoulder as comfortable. To avoid any lifting of weights with the RIGHT upper extremity. At this stage it is permissible to have her shower but keep the wound and dressings dry by wrapping tightly with impermeable material like Saran wrap. Change the dressings once every 2 or 3 days unless there is visible soakage of the dressings. She has a Monocryl suture in place and this will not require any suture removal. We will plan on seeing her back in approximately 7 days for wound recheck and to cut the suture ends. Her family physician, Dr. Chris, will be managing her medications. Please feel free to give me a call at [phone] or via the hospital yarn texture machine operator [phone] orthopaedic questions or concerns. Condition at discharge: improved and stable. Treatments and Procedures: 1) Removal of K wires and resection arthroplasty (Girdlestone), RIGHT shoulder- date of surgery 11/23/2016 Discharge diagnoses Problem List 1. Recurrent dislocation, right shoulder 2. Anxiety disorder 3. Hyperlipidemia 4. Osteoarthritis 5. History of non anemic vitamin B12 deficiency 6. History of permanent cardiac pacemaker placement Medications Medications: Current Medications Nitrofurantoin 100 MG BID PO Hydrocodone Bitart/Acetaminophen 0 .STK-MED ONE PO (DC) Hydrocodone Bitart/Acetaminophen 0 .STK-MED ONE PO (DC) Hydrocodone Bitart/Acetaminophen 0 .STK-MED ONE PO (DC) Diazepam 0 .STK-MED ONE PO (DC) Hydrocodone Bitart/Acetaminophen 0 .STK-MED ONE PO (DC) Hydrocodone Bitart/Acetaminophen 1 TAB Q4HP PRN PO Hydrocodone Bitart/Acetaminophen 2 TAB Q4HP PRN PO Lactated Ringer's 1,000 ML .[id number] IV Morphine Sulfate 2 MG Q4HP PRN IV Promethazine HCl 12.5 MG Q6HP PRN IV Sodium Chloride 25 ML PRN PRN IV Miscellaneous 1.5 EACH ONCE ONE IV (DC) Sodium Chloride 100 ML Bisacodyl 10 MG DAILYP PRN [place] Diazepam 2 MG QHS PO Gabapentin 100 MG QHS PO Clindamycin Phosphate 600 MG Q8H IV Sodium Chloride 100 ML Sodium Chloride 10 ML PRN PRN IV Senna/Docusate Sodium 1 TAB BIDP PRN PO Sodium Chloride 25 ML PRN PRN IV Discharge meds are as noted. Follow up Follow up in office in: 7 DAYS with: VINOD BURGESS, CADENCE GLORIA
--- NOTE | 2016-11-25 13:55 | DISCHARGE SUMMARY STANDARD ---
Demographics Admit date: 11/19/16 Discharge date: 11/25/16 History of present illness History of present illness 89 yo WF who is a resident at [facility] who is remarkably healthy for her age. She has had a chronic dislocation of right shoulder for which she underwent a closed manipulative reduction and K wire fixation on 11/17/2016. Postoperatively she started oozing from one of the K wire sites. She was admitted for observation and for further management as needed. She has a history of a permanent pacemaker in place and had a cardiac workup prior to surgery that was unremarkable. She also has a history of anxiety disorder, hyperlipidemia, chronic vertigo, and chronic TMJ syndrome. She says she had a disturbed sleep and also reports some shoulder pain. She is not on any anticoagulants but has been on ibuprofen for a long time. No history of any distal tingling or numbness. No history of any hypotension, lightheadedness or dizziness. She says she feels well within herself and is eating and drinking well. No history of any fevers, chills or rigors. Hospital Course Hospital Course: Patient was admitted for observation and dressing changes as needed. However, she continued to ooze from the K wire sites and also continue to have pain and discomfort in her shoulder. As there is risk of infecting the shoulder with the continued discharge from the K wire sites as well as the fact that the shoulder is only partially reduced with anterior subluxation and a large Hill-Sachs lesion, a decision was made to proceed with resection arthroplasty of her RIGHT shoulder as was initially planned. The patient was amenable for this. She underwent removal of K wires and a successful resection arthroplasty ( Girdlestone) of RIGHT shoulder on 11/23/2016. The interested reader is referred to operative note for details. Her postoperative course was uneventful. Her routine urine cultures were positive for E. coli UTI and she was started on oral nitrofurantoin. Otherwise she remained hemodynamically stable, fairly comfortable with when necessary pain medication and eating and drinking well. The dressings were changed on the second postoperative day and there was minimal oozing from the K wire site. The surgical incision was clean dry and intact. There are no signs of any infection. This morning she is doing well, alert, oriented x3. Expected pain is noted. However her exam has improved very nicely. She'll be transferred back to the [facility] for ongoing rehabilitation. At time of discharge the patient's vital signs were stable and she was afebrile. Our recommendations for the [facility] includes to continue with the arm sling and mobilize the elbow, wrist and fingers intermittently taking the arm out of the sling. Ice the shoulder frequently. She can start pendulum exercises of the shoulder as comfortable. To avoid any lifting of weights with the RIGHT upper extremity. At this stage it is permissible to have her shower but keep the wound and dressings dry by wrapping tightly with impermeable material like Saran wrap. Change the dressings once every 2 or 3 days unless there is visible soakage of the dressings. She has a Monocryl suture in place and this will not require any suture removal. We will plan on seeing her back in approximately 7 days for wound recheck and to cut the suture ends. Her family physician, Dr. Chris, will be managing her medications. Please feel free to give me a call at [phone] or via the hospital blow up operator [phone] orthopaedic questions or concerns. Condition at discharge: improved and stable. Treatments and Procedures: 1) Removal of K wires and resection arthroplasty (Girdlestone), RIGHT shoulder- date of surgery 11/23/2016 Discharge diagnoses Problem List 1. Recurrent dislocation, right shoulder 2. Anxiety disorder 3. Hyperlipidemia 4. Osteoarthritis 5. History of non anemic vitamin B12 deficiency 6. History of permanent cardiac pacemaker placement Medications Medications: Current Medications Nitrofurantoin 100 MG BID PO Hydrocodone Bitart/Acetaminophen 0 .STK-MED ONE PO (DC) Hydrocodone Bitart/Acetaminophen 0 .STK-MED ONE PO (DC) Hydrocodone Bitart/Acetaminophen 0 .STK-MED ONE PO (DC) Diazepam 0 .STK-MED ONE PO (DC) Hydrocodone Bitart/Acetaminophen 0 .STK-MED ONE PO (DC) Hydrocodone Bitart/Acetaminophen 1 TAB Q4HP PRN PO Hydrocodone Bitart/Acetaminophen 2 TAB Q4HP PRN PO Lactated Ringer's 1,000 ML .[id number] IV Morphine Sulfate 2 MG Q4HP PRN IV Promethazine HCl 12.5 MG Q6HP PRN IV Sodium Chloride 25 ML PRN PRN IV Miscellaneous 1.5 EACH ONCE ONE IV (DC) Sodium Chloride 100 ML Bisacodyl 10 MG DAILYP PRN SD Diazepam 2 MG QHS PO Gabapentin 100 MG QHS PO Clindamycin Phosphate 600 MG Q8H IV Sodium Chloride 100 ML Sodium Chloride 10 ML PRN PRN IV Senna/Docusate Sodium 1 TAB BIDP PRN PO Sodium Chloride 25 ML PRN PRN IV Discharge meds are as noted. Follow up Follow up in office in: 7 DAYS with: VINOD BURGESS, CADENCE GLORIA
[2016-11-25 16:33] VITALS: BP 134/66
== END 2016-11-25 16:20 ==
LOC: 2ND 10:20
PROVIDERS: Orthopaedic Surgery
PROC: 0PBC0ZZ Excision of Right Humeral Head, Open Approach (ICD-10-PCS; principal; 2016-11-23 15:47)
DX: M24.411 Recurrent dislocation, right shoulder (principal); G89.29 Other chronic pain; E55.9 Vitamin D deficiency, unspecified; Z95.0 Presence of cardiac pacemaker; T84.120A Displacement of internal fixation device of right humerus, initial encounter; E53.8 Deficiency of other specified B group vitamins; N39.0 Urinary tract infection, site not specified; B96.20 Unspecified Escherichia coli [E. coli] as the cause of diseases classified elsewhere
CPT/HCPCS: G0238; G0378; J2405; J2710; J3370